=== PATIENT | female | born 1970 | race Caucasian/White ===

== ENCOUNTER 2020-04-09 15:07 | Observation (INO) | payer OTHER, SELFPAY ==
--- NOTE | ~2020-04-09 | MR_ITS ---
EXAMINATION: MR foot RT wo/w con DATE: 04/10/2020 13:47 INDICATION: Right foot fifth digit osteomyelitis. TECHNIQUE: Magnetic resonance imaging (MRI) of the right foot was performed without and with 20 mL Mu ltiHance intravenous contrast. Sequences included long axis TI-weighted FS FSE and sagittal, short ax is, and long axis TI-weighted FSE and T2-weighted FSE and postcontrast T1-weighted FS FSE. COMPARISON: Right fifth toe radiographs 04/09/2020 FINDINGS: Bone alignment is normal. No fracture. There is no decreased T1-weighted signal intensity i n the bone marrow to suggest osteomyelitis. There is mild osteoarthritis of first metatarsophalangeal joint and some of the midfoot joints and interphalangeal joints. Lisfranc ligament is intact. The fl exor and extensor tendons are normal. There is no myositis. IMPRESSION: 1. No specific evidence of osteomyelitis. Reviewed, dictated and finalized at location E. BUSINESS INTELLIGENCE CONSULTANT
--- NOTE | ~2020-04-09 | XR_ITS ---
XR toe 5th RT min 2V 04/09/2020 15:56 Indication: Right fifth toe pain Procedure: 3 views right fifth toe Comparison: No prior studies for comparison. Findings: There is suggestion of subtle osteolysis base of the fifth proximal phalanx. No displaced f racture. Mild soft tissue swelling. No foreign bodies. Impression: 1: Possible osteolysis medial base right fifth proximal phalanx. Cannot exclude osteomyelitis in the appropriate clinical setting. Consider correlation with MRI. Reviewed, dictated and finalized at location A. E OPERATOR HEAVY DUTY Impression: 1: Possible osteolysis medial base right fifth proximal phalanx. Cannot exclude osteomyelitis in the appropriate clinical setting. Consider correlation with M HORTENCIA.
--- NOTE | ~2020-04-09 | US_ITS ---
EXAMINATION: US arterial duplex LE DATE: 04/10/2020 14:34 PERFORATOR INDICATION: Gangrene of the right fifth toe TECHNIQUE: Segmental pressures and plethysmographic and Doppler waveforms of the brachial and lower e xtremity arteries were obtained. COMPARISON: None. FINDINGS: Right and left brachial artery pressures of 140 mm Hg and 136 mm Hg, respectively, are concordant (no rmal difference <= 30 mmHg). The right high-thigh pressure index is 1.02 (normal > 1.2). The right ankle-brachial index (SVITLANA) is 0 .57 (normal >= 0.9-1.0). The right great toe-brachial index (TBI) is 0.22 (normal >= 0.60). The right lower extremity segmental pressure gradients are increased below the popliteal arteries (normal grad ients <= 20-30 mmHg between adjacent levels on the same leg or the same levels on the two legs). Sabra rial Doppler waveforms next monophasic and biphasic. The left high-thigh pressure index is 1.08. The left SVITLANA is 0.65. The left TBI is 0.5. The left lower extremity segmental pressure gradients are increased below the popliteal artery. Arterial Doppler wa veforms are biphasic. IMPRESSION: 1. Diminished bilateral ankle and toe brachial indices consistent with moderate-severe peripheral art erial disease on the right and moderate peripheral arterial disease on the left. Reviewed, dictated and finalized at location A. ORATOR IMPRESSION: 1. Diminished bilateral ankle and toe brachial indices consistent with moderate -severe peripheral arterial disease on the right and moderate peripheral arteri al disease on the left.
[2020-04-09 15:26] VITALS: BP 146/83; PULSE 88; RESP 16; TEMP 36.7; O2SAT 99
[2020-04-09 16:16] LABS: Basophils Absolute Auto 0.1 K/mm3 (0.0-0.1); Basophils Percent Auto 0.3 % (0.2-1.2); Eosinophils Absolute Auto 0.1 K/mm3 (0-0.3); Eosinophils Percent Auto 0.7 % (0-4.4); Hematocrit 44.5 % (37.0-47.0); Hemoglobin 14.8 g/dL (12.0-15.0); Immature Granulocyte Absolute 0.11 K/mm3 (0.00-0.031); Immature Granulocyte Percent A 0.6 % (0-0.5); Lymphocytes Absolute Auto 2.46 K/mm3 (0.9-3.2); Lymphocytes Percent Auto 13.8 % (18.3-44.2); Mean Corpuscular HGB Conc 33.3 g/dl (32-36); Mean Corpuscular Hemoglobin 30.6 pg (26-34); Mean Corpuscular Volume 92.1 fl (80-100); Mean Platelet Volume 10.2 fl (7.4-10.4); Monocytes Percent Auto 5.4 % (2.6-8.5); Neutrophils Absolute Auto 14.2 K/mm3 (1.3-6.7); Neutrophils Percent Auto 79.2 % (45.5-73.1); Platelet Count Result 361 k/mm3 (150-375); Red Blood Count 4.83 M/mm3 (4.2-5.4); Red Cell Distribution Width 13.8 % (11.5-14.5); White Blood Count 17.9 K/mm3 (4.5-10.0)
[2020-04-09 16:28] LABS: Anion Gap 10 mmol/L (8-16); Blood Urea Nitrogen 12 mg/dL (7-17); Calcium 10.1 mg/dL (8.4-10.2); Carbon Dioxide 30 mmol/L (22-30); Chloride 101 mmol/L (98-107); Estimated CRCL calculation 100 ml/min; Estimated Glomerular Filt Rate > 60; Glucose 130 mg/dL (65-105); Potassium 4.3 mmol/L (3.4-5.0); Sodium 141 mmol/L (137-145)
[2020-04-09 17:30] VITALS: BP 140/97; PULSE 78; RESP 16; TEMP 36.8; O2SAT 98
[2020-04-09 18:12] LABS: CRP 2.7 mg/dL (<1.0)
--- NOTE | 2020-04-09 18:20 | ED.GENADULT ---
HPI - General Adult General Chief complaint: Extremity Injury, Lower Stated complaint: wound to foot Time Seen by Provider: 04/09/20 15:36 Source: patient and old records reviewed Mode of arrival: ambulatory Limitations: no limitations History of Present Illness HPI narrative: Patient is a 49-year-old female who presents to emergency department for evaluation of right pinky toe discoloration patient notes in January she began to have discoloration and irritation of the digit was seen in urgent care had negative radiographs and then was seen again at the beginning of the month by her director dance to have the patient on steroids with no improvement. Patient notes small ulcerated area to the medial aspect of the digit with the remainder of the digit with erythematous does not coloration with a few splotchy areas and to the dorsal surface of the forefoot. Patient notes aching pain worse with activity and movement. Patient denies any fever chills nausea vomiting presents in no distress has not been on antibiotics for this Related Data Home Medications Medication Instructions Recorded Confirmed naproxen 500 mg tablet 500 mg PO BID 10/16/19 10/16/19 rituximab 10 mg/mL IVPB 10/16/19 10/16/19 concentrate,intravenous sulfasalazine 500 mg tablet 0.5 gm PO BID tablet 10/16/19 10/16/19 levothyroxine 04/09/20 Allergies Allergy/AdvReac Type Severity Reaction Status Date / Time hydroxychloroquine AdvReac Unknown Headache Verified 04/09/20 16:23 Review of Systems Review of Systems: All systems reviewed & are unremarkable except as noted in HPI and below PMFSH Past Medical History Medical History Rheumatoid arthritis with positive rheumatoid factor Family History Family History (Updated 11/14/15 @ 23:21 by DOCTOR UNKNOWN) Father Family history of obesity Patient's father is in good health Family history of diabetes mellitus in first degree relative Family history of coronary artery disease Mother Family history of obesity Patient's mother is in good health Family history of diabetes mellitus in first degree relative Family history of rheumatoid arthritis Sibling Family history of obesity Patient's sister is in good health Patient's brother is in good health Grandparent Carcinoma of colon Family history of malignant neoplasm of breast Social History Social History Smoking status: Heavy tobacco smoker Alcohol intake: current Exam Narrative: Exam Narrative: GENERAL: Well-appearing, and in no acute distress. HEAD: Normocephalic, atraumatic. EYES: PERRLA and EOMI. ENT: Nares clear, no rhinorrhea or epistaxis. Mucous membranes moist. CHEST: Clear to auscultation. No respiratory distress. No wheezes rales or rhonchi HEART: Regular rate and rhythm. No murmur heard. EXTREMITIES: Normal range of motion. No edema. Patient with right fifth digit with slightly erythematous appearance with have similar ulcerated lesion to the medial aspect of the digit erythematous discoloration is circumferential with devitalized tissue noted involving the distal tip and dorsal surface. Patient with dopplerable bilateral dorsalis pedis pulses and posterior tibialis pulses SKIN: Warm, dry, no rash. NEURO: No focal deficits. Alert and oriented x3. Neurovascularly intact PSYCH: Normal mood and affect. Course Course Emergency Course: Patient in the room was evaluated patient had wound cultures obtained will be started on antibiotics admitted to the hospitalist service with orthopedic consult patient afebrile nontoxic-appearing no distress. Patient's presentation is concerning for either vasculitis or osteomyelitis. Will be covered with antibiotics given the appearance of osteolysis. Patient also has white count which is difficult to tell if this could be from steroids or secondary to infection. Patient was give
[2020-04-09 18:26] LABS: Erythrocyte Sedimentation Rate 20 mm/hr (0-20)
[2020-04-09] MEDS: KETOROLAC 30 MG/ML VIAL (*BKC) IV PUSH (20:07)
[2020-04-09 20:12] VITALS: BP 147/81; PULSE 81; RESP 16; TEMP 36.9; O2SAT 96
--- NOTE | 2020-04-09 20:22 | ADMGEN ---
This patient, Shira Gomez, was admitted to Medical Room 247-. Patient/family oriented to hospital policies and general routines including ID bracelet, bed and alarms, visiting hours, pain management, procedures, bathroom and other care routines, personal items, smoking policy, room service/diet, and visiting hours. Information on how to activate the Rapid Response Team has been discussed. Patient/Family are encouraged to report perceived risks to care and to ask questions if they do not understand what they are told or what they should do.
[2020-04-09] MEDS: LACTATED RINGERS 1,000 ML 75 ML IV CONT (21:25)
[2020-04-09] MEDS: FAMOTIDINE 20 MG/2 ML VIAL IV PUSH (21:36)
[2020-04-09 22:00] VITALS: BP 136/63; PULSE 75; RESP 20; TEMP 36.3; O2SAT 98; BMI 36.5
--- NOTE | 2020-04-09 22:03 | PM.IMHP ---
H&P: HPI History of Present Illness Date/Time: 04/09/20 22:03 Chief Complaint: Right foot pain Narrative: Shira Gomez is a 49 year old female. The patient stated that she wore pair boots that were too tight for her back in January. She said she does had him on for couple hours and they are bothering her feet she to [place] often did having problems about a week later she noticed that she had some redness and soreness to her right pinky toe. It should was just red and swollen. Around Thanksgiving she could not take the pain anymore so she went to an urgent care they gave her some prednisone thinking that it would take the swelling down. She said it helped some but it still did resolve the problem med her white count did go up. I explained her that steroids can make your white count go up. The patient then followed up with her grocery clerk checking who told her to stop taking the steroids. The patient started to have some discoloration about this last week. She went to urgent care who said that she had negative radiographs. She has not had any antibiotics at this time. She did get worked up by her grocery clerk checking for possible vasculitis which was poor reported that it was not vasculitis. She does smoke about a pack a cigarettes a day. And she does have RA. A culture was taken from that small toe on the right foot. Less than half a cm area of devitalized tissue was removed from the right pinky toe with scissors and pickups in the emergency room. The patient was given Toradol in the emergency room. Orthopedics has been consulted. She did have a x-ray of her right foot which was suggestive of osteomyelitis and suggested a follow-up with the MRI of the right foot. Her foot and then she was given vancomycin. IV fluids were started as well. Patient is admitted to observation status on the date of service of 04/09/2020. Review of Systems Review of Systems: All systems reviewed & are unremarkable except as noted in HPI and below Constitutional: Constitutional: Reports as per HPI and Reports no additional constitutional complaints Eyes: Eyes: Reports as per HPI and Reports no additional eye complaints ENT: Reports system reviewed and no additional complaints, except as documented and Reports Normal hearing present Cardiovascular: Cardiovascular: Reports no additional cardiovascular complaints Respiratory: Respiratory: Reports no additional respiratory complaints and Reports no additional respiratory complaints Gastrointestinal: Gastrointestinal: Reports as per HPI and Reports no additional gastrointestinal complaints Musculoskeletal: Musculoskeletal: Reports no additional musculoskeletal complaints Integumentary/Breasts: Skin/Breast: Reports system reviewed and no additional complaints, except as docu and Reports as per HPI Neurologic: Reports system reviewed and no additional complaints, except as documented, Reports as per HPI and Reports Normal hearing present Psychiatric: Psychiatric: Reports no additional psychiatric complaints and Reports as per HPI Endocrine: Endocrine: Reports no additional endocrine complaints Hematologic/Lymphatic: Hematologic/Lymphatic: Reports no additional hematologic/lymphatic complaints Allergic/Immunologic: Allergic/Immunologic: Reports no additional allergic/immunologic complaints [facility] Past Medical History Medical History (Updated 04/09/20 @ 22:12 by Karen Shelton NP) Hypothyroidism Rheumatoid arthritis with positive rheumatoid factor Surgical History Surgical History (Updated 04/09/20 @ 22:07 by Karen Shelton NP) No pertinent past surgical history Family History Family History Father Family history of obesity Patient's father is in good health Family history of diabetes mellitus in first degree relative Family history of coronary artery disease Mother Family history of obesity Patient's mother is in good health Family
[2020-04-10 02:00] VITALS: BP 112/50; PULSE 52; RESP 20; TEMP 36.2; O2SAT 99
[2020-04-10] MEDS: KETOROLAC 15 MG/ML VIAL (*BKC) IV PUSH ×2 (02:06→12:12)
[2020-04-10 06:00] VITALS: BP 125/54; PULSE 57; RESP 20; TEMP 36.1; O2SAT 98
[2020-04-10 06:23] LABS: Anion Gap 5 mmol/L (8-16); Blood Urea Nitrogen 12 mg/dL (7-17); Calcium 8.8 mg/dL (8.4-10.2); Carbon Dioxide 28 mmol/L (22-30); Chloride 106 mmol/L (98-107); Estimated CRCL calculation 131 ml/min; Estimated Glomerular Filt Rate > 60; Glucose 178 mg/dL (65-105); Magnesium 2.2 mg/dL (1.6-2.3); Sodium 139 mmol/L (137-145)
[2020-04-10 06:32] LABS: Basophils Percent Auto 0.2 % (0.2-1.2); Eosinophils Absolute Auto 0.1 K/mm3 (0-0.3); Eosinophils Percent Auto 0.8 % (0-4.4); Hemoglobin 12.8 g/dL (12.0-15.0); Immature Granulocyte Absolute 0.09 K/mm3 (0.00-0.031); Immature Granulocyte Percent A 0.7 % (0-0.5); Lymphocytes Absolute Auto 1.55 K/mm3 (0.9-3.2); Lymphocytes Percent Auto 12.7 % (18.3-44.2); Mean Corpuscular HGB Conc 32.8 g/dl (32-36); Mean Corpuscular Hemoglobin 30.2 pg (26-34); Mean Platelet Volume 10.8 fl (7.4-10.4); Neutrophils Absolute Auto 9.5 K/mm3 (1.3-6.7); Neutrophils Percent Auto 77.6 % (45.5-73.1); Platelet Count Result 305 k/mm3 (150-375); Red Blood Count 4.24 M/mm3 (4.2-5.4); Red Cell Distribution Width 13.7 % (11.5-14.5); White Blood Count 12.2 K/mm3 (4.5-10.0)
[2020-04-10] MEDS: FAMOTIDINE 20 MG/2 ML VIAL IV PUSH ×2 (08:32→20:36)
[2020-04-10 09:27] LABS: Free T4 Free Thyroxine Reflex 0.88 ng/dL (0.78-2.19)
[2020-04-10 10:00] VITALS: BP 132/68; PULSE 62; RESP 16; TEMP 36.7; O2SAT 99
[2020-04-10 11:35] LABS: Total Triiodothyronine (T3) 1.11 NG/ML (0.97-1.69)
--- NOTE | 2020-04-10 12:19 | PM.IMPN ---
Progress Note: A&P Assessment and Plan (1) Osteomyelitis of fifth toe of right foot: Code(s): M86.9 - Osteomyelitis, unspecified Status: Acute Assessment and Plan: Patient was placed on Zosyn and vancomycin. Will get a MRI of the foot ortho has been consulted. We also have medication for pain and will continue with IV fluids.. May wrap the foot with Telfa and Liyah. (2) Hypothyroidism: Code(s): E03.9 - Hypothyroidism, unspecified Status: Chronic Assessment and Plan: Check thyroid level and continue with levothyroxine. (3) Rheumatoid arthritis with positive rheumatoid factor: Code(s): M05.9 - Rheumatoid arthritis with rheumatoid factor, unspecified Status: Chronic Assessment and Plan: Continue with her home medications of sulfasalazine and rituximab. Additional Plan Will get Ortho consult for assessment of foot infection. Would also increase the dose of levothyroxine as TSH level is quite high. Will monitor cultures and repeat labs. Subjective Date/time seen: 04/10/20 12:19 Interval history: Patient was seen during the morning rounds today. Patient continues to have pain in the foot area with infection is. Patient denies any shortness of breath or chest pain. Mood stable Review of Systems Review of Systems: All systems reviewed & are unremarkable except as noted in HPI and below Constitutional: Constitutional: Reports as per HPI and Reports no additional constitutional complaints Eyes: Eyes: Reports as per HPI and Reports no additional eye complaints ENT: Reports system reviewed and no additional complaints, except as documented and Reports Normal hearing present Cardiovascular: Cardiovascular: Reports no additional cardiovascular complaints Respiratory: Respiratory: Reports no additional respiratory complaints and Reports no additional respiratory complaints Gastrointestinal: Gastrointestinal: Reports as per HPI and Reports no additional gastrointestinal complaints Musculoskeletal: Musculoskeletal: Reports no additional musculoskeletal complaints Integumentary/Breasts: Skin/Breast: Reports system reviewed and no additional complaints, except as docu and Reports as per HPI Neurologic: Reports system reviewed and no additional complaints, except as documented, Reports as per HPI and Reports Normal hearing present Psychiatric: Psychiatric: Reports no additional psychiatric complaints and Reports as per HPI Endocrine: Endocrine: Reports no additional endocrine complaints Hematologic/Lymphatic: Hematologic/Lymphatic: Reports no additional hematologic/lymphatic complaints Allergic/Immunologic: Allergic/Immunologic: Reports no additional allergic/immunologic complaints Exam Const: General: cooperative, healthy appearing, comfortable, no acute distress, well developed, alert, awake and Physically active Nutritional Appearance: average body habitus and well nourished Orientation/consciousness: oriented to person, oriented to place, oriented to time and patient oriented x3 Limitations: no limitations HENMT: Head: normal to inspection, No palpable skull fracture present, normocephalic and atraumatic Ears: hearing grossly normal bilaterally and external ears normal General nose exam: Normal external nose present, Normal nares present and No nasal polyps present Eyes: General: appearance normal, both eyes and all related structures Alignment and Position: alignment normal Periorbital: periorbital findings normal Eyelids: eyelids normal Conjunctivae: conjunctivae normal Sclera: sclerae normal Cornea: corneas normal Pupils: Equal, round and reactive pupils present and Pupil accommodation reflex normal EOM: EOMs intact bilaterally Neck: Neck: normal visual inspection, full ROM, no lymphadenopathy, trachea midline and supple Thyroid: thyroid normal Carotids: normal carotid upstroke Lymphatic: no lymphadenopathy noted Chest: Chest palpation & inspection: normal ins
--- NOTE | 2020-04-10 12:49 | PM.CNOR ---
Assessment and Plan Additional Plan This patient is a 49 year old female who was admitted yesterday evening through the emergency room with possible osteomyelitis of the right 5th toe. Her right 5th toe started hurting in late January. She recalls that it looked a little bit red and it was a darker red. She did not have any scab her blister at that time. She could not determine a cause. She thought maybe it was from wearing a tight shoe. There is no break in the skin or scab. She observe this and by Thanksgiving time she started experiencing intense extreme pain in the right 5th toe which she rated as 9/10. It kept her from sleeping at night and it was relentless. She has rheumatoid arthritis and she saw her liner checker and it was suspected that she might have a autoimmune vasculitis as the etiology and she was treated with prednisone and then a Medrol Dosepak. When she did not respond to the Medrol Dosepak, Raynaud's phenomena was also considered. She has not had any corticosteroids she states for the last few weeks. For her rheumatoid arthritis she takes sulfasalazine and rituximab. Her last infusion of rituximab was February 11. She developed dark eschar over the medial aspect of the right 5th toe. The pain has persisted. Yesterday she was supposed to have a CT angiogram as there was question of blood flow in the lower extremities and for some reason this could not be done and the patient was told to go to the emergency room. In the emergency room yesterday she was noted to have an elevated white count of 18,000. It is 12,000 today. She had a mild elevation in C reactive protein to 2.7 and borderline sedimentation rate at 20. She has not had any fevers or chills. The ER physician described yesterday that there was a blister and he had planned to unroof that and take some cultures of any fluid underneath but there was no actual drainage and has not been actual drainage occurring from the toe. Blood cultures were also obtained. Her family history is significant for her mother losing a leg due to vascular disease in her mid 70s. This occurred after undergoing chemotherapy and the patient recalls that there was a lot of uncertainty as to whether this represented avascular problem or a vasculitis problem early on. She recalls conversation that the vessels were clogged in the ankle and they could not do bypass surgery but it was discussed. She recalls being told that her mother had a blood clot that resulted from her chemotherapy in the leg but does not know whether the blood clot was in the artery or vein. Her mother did not smoke. This patient smokes a pack of cigarettes per day. She has been told in the last month to stop smoking but has not complied. I had a long discussion with her today about the fact that she may lose her leg from smoking. She must quit now completely and for ever more. On examination today the redness involves the 5th toe itself. She has a relatively short 5th toe. There is dark moist eschar over the medial 1/2 of the toe where it would come into contact with the 4th toe. She has exquisite tenderness to squeezing her 5th toe. She had minimal tenderness if any with squeezing of the metacarpal phalangeal joint of the 5th ray and there is no swelling or erythema around the 5th metatarsal phalangeal joint or pain with movement of that joint. The clinical appearance is that of early gangrene. Her foot is warm but I could not feel either a dorsalis pedis or a posterior tibial artery pulse. There is an x marked were she apparently did have a dorsalis pedis pulse the could be Doppler d. She denies numbness or tingling. There is no edema in the foot ankle or calf and no erythema or tenderness in these areas. She had an x-ray of the 5th toe down the emergency room last night the radiologist noted a 1 mm lucency at the medial articular base of the proximal phalanx of the 5th toe. There is a similar 1 mm lucency which could also b
[2020-04-10] MEDS: ASPIRIN 81 MG CHEWABLE TABLET PO (14:53)
[2020-04-10] MEDS: ENOXAPARIN 30 MG/0.3 ML SYRINGE SUB-Q ×2 (14:53→20:36)
[2020-04-10] MEDS: oxyCODONE HCL (*CRX) 2.5 MG TAB IR PO ×3 (14:54→23:44)
--- NOTE | 2020-04-10 16:09 | PM.CNGS ---
Assessment and Plan Assessment and plan (1) Ischemic ulcer of toe of right foot: Onset Date: ~01/2020 Code(s): L97.519 - Non-pressure chronic ulcer of other part of right foot with unspecified severity Status: Acute Assessment and Plan: This may be the case of early Buerger's disease or some small-vessel ischemia to the right 5th toe. The abnormalities of the arterial vessels on her ultrasound suggest that she has atherosclerosis of the lower extremities below the knee worse on the right. This is probably led to the condition of her right toe. We need to await the results of her right foot MRI. If there is a strong possibility of osteomyelitis on that would consider infectious disease consultation in view of the fact that her options would be long-term IV antibiotics to try to clear this without amputation versus a right 5th toe ray amputation. I believe that she should keep her appointment for a CT a of the right lower extremity and then consider vascular surgery consultation once that is done to see if we can improve the blood flow to the foot of the right lower extremity. Thank for asking me to see this pleasant patient will try to work with you in for wound care and further workup. Patient should be strongly encouraged to stop smoking. (2) Rheumatoid arthritis with positive rheumatoid factor: Onset Date: Unknown Code(s): M05.9 - Rheumatoid arthritis with rheumatoid factor, unspecified Status: Chronic Assessment and Plan: On medication and hospitalist service following. (3) Hypothyroidism: Onset Date: Unknown Code(s): E03.9 - Hypothyroidism, unspecified Status: Chronic Assessment and Plan: On medication and hospitalist service following. (4) Pain in toe of right foot: Onset Date: ~01/2020 Code(s): M79.674 - Pain in right toe(s) Status: Acute Assessment and Plan: Most likely secondary to mild trauma plus ischemia to the right 5th toe. See #1. above. Additional Plan I agree with Dr. Davis interventions of a baby aspirin once a day along with low-dose Lovenox while in the hospital. I would recommend applying a daily dressing of silver gel on the broken down skin on her 5th toe with a light wrap to protect the area. History of Present Illness Consult details Consult date: 04/10/20 Reason for consult: other ( Possible ischemia to right foot and 5th toe) Requesting physician: Bruno Price MD Narrative: This patient is a 49 year old White female who is an active smoker and was admitted on the evening of 04/09/2020 through the emergency room with possible osteomyelitis of the right 5th toe. Her right 5th toe started hurting in late January. She recalls that it looked a little bit red and it was a darker red. She did not have any scab her blister at that time. She could not determine a cause. She thought maybe it was from wearing a tight shoe. There is no break in the skin or scab. She observe this and by Thanksgiving time she started experiencing intense extreme pain in the right 5th toe which she rated as 9/10. It kept her from sleeping at night and it was relentless. She has rheumatoid arthritis and she saw her crimper operator and it was suspected that she might have a autoimmune vasculitis as the etiology and she was treated with prednisone and then a Medrol Dosepak. When she did not respond to the Medrol Dosepak, Raynaud's phenomena was also considered. She has not had any corticosteroids she states for the last few weeks. For her rheumatoid arthritis she takes sulfasalazine and rituximab. Her last infusion of rituximab was February 11. She developed dark eschar over the medial aspect of the right 5th toe. The pain has persisted. Yesterday she was supposed to have a CT angiogram as there was question of blood flow in the lower extremities and for some reason this could not be done and the patient was told to go to the e
[2020-04-10 18:00] VITALS: BP 126/62; PULSE 62; RESP 16; TEMP 36.7; O2SAT 97
[2020-04-10 18:12] LABS: Hematocrit 38.4 % (37.0-47.0); Hemoglobin 12.8 g/dL (12.0-15.0); Mean Corpuscular HGB Conc 33.3 g/dl (32-36); Mean Corpuscular Hemoglobin 30.8 pg (26-34); Mean Corpuscular Volume 92.5 fl (80-100); Mean Platelet Volume 10.2 fl (7.4-10.4); Platelet Count Result 280 k/mm3 (150-375); Red Blood Count 4.15 M/mm3 (4.2-5.4); Red Cell Distribution Width 13.8 % (11.5-14.5); White Blood Count 13.4 K/mm3 (4.5-10.0)
[2020-04-10] MEDS: SILVERGEL (ELTA) 45 ML 1 APPLIC TOPICAL (18:14)
[2020-04-10] MEDS: NICOTINE (*PBKC) 21 MG PATCH 1 PATCH TRANSDERM (18:14)
[2020-04-10] MEDS: LACTATED RINGERS 1,000 ML 75 ML IV CONT (18:17)
[2020-04-10 20:56] VITALS: BP 107/66; PULSE 62; RESP 16; TEMP 37.1; O2SAT 99
[2020-04-11] VITALS (7 sets, daily range): BP systolic 116–127; BP diastolic 57–71; PULSE 58–75; RESP 16–20; TEMP 36.3–37; O2SAT 94–100
[2020-04-11] MEDS: oxyCODONE HCL (*CRX) 2.5 MG TAB IR PO ×6 (04:14→22:56)
[2020-04-11 05:26] LABS: Basophils Percent Auto 0.3 % (0.2-1.2); Eosinophils Absolute Auto 0.2 K/mm3 (0-0.3); Eosinophils Percent Auto 1.3 % (0-4.4); Hematocrit 38.8 % (37.0-47.0); Hemoglobin 12.7 g/dL (12.0-15.0); Immature Granulocyte Absolute 0.09 K/mm3 (0.00-0.031); Immature Granulocyte Percent A 0.8 % (0-0.5); Lymphocytes Absolute Auto 1.62 K/mm3 (0.9-3.2); Lymphocytes Percent Auto 13.5 % (18.3-44.2); Mean Corpuscular HGB Conc 32.7 g/dl (32-36); Mean Corpuscular Hemoglobin 30.2 pg (26-34); Mean Corpuscular Volume 92.4 fl (80-100); Mean Platelet Volume 10.1 fl (7.4-10.4); Monocytes Absolute Auto 1.1 K/mm3 (0.1-0.6); Monocytes Percent Auto 9.5 % (2.6-8.5); Neutrophils Percent Auto 74.6 % (45.5-73.1); Platelet Count Result 261 k/mm3 (150-375)
[2020-04-11 06:10] LABS: Vancomycin Trough 13.3 ug/mL (10.0-20.0)
[2020-04-11] MEDS: LACTATED RINGERS 1,000 ML 75 ML IV CONT (06:18)
[2020-04-11] MEDS: LEVOTHYROXINE SODIUM 125 MCG TABLET PO (07:17)
--- NOTE | 2020-04-11 08:11 | PM.IMPN ---
Progress Note: A&P Assessment and Plan (1) Osteomyelitis of fifth toe of right foot: Code(s): M86.9 - Osteomyelitis, unspecified Status: Acute Assessment and Plan: Patient was placed on Zosyn and vancomycin. Will get a MRI of the foot ortho has been consulted. We also have medication for pain and will continue with IV fluids.. May wrap the foot with Telfa and Liyah. (2) Hypothyroidism: Onset Date: Unknown Code(s): E03.9 - Hypothyroidism, unspecified Status: Chronic Assessment and Plan: Check thyroid level and continue with levothyroxine. (3) Rheumatoid arthritis with positive rheumatoid factor: Onset Date: Unknown Code(s): M05.9 - Rheumatoid arthritis with rheumatoid factor, unspecified Status: Chronic Assessment and Plan: Continue with her home medications of sulfasalazine and rituximab. Additional Plan Will get Ortho consult for assessment of foot infection. Would also increase the dose of levothyroxine as TSH level is quite high. Will monitor cultures and repeat labs. Subjective Date/time seen: 04/11/20 08:11 Interval history: Patient was seen during the morning rounds today. Patient continues to have pain in the foot area with infection is. Patient denies any shortness of breath or chest pain. Mood stable No new complaints. Review of Systems Review of Systems: All systems reviewed & are unremarkable except as noted in HPI and below Constitutional: Constitutional: Reports as per HPI and Reports no additional constitutional complaints Eyes: Eyes: Reports as per HPI and Reports no additional eye complaints ENT: Reports system reviewed and no additional complaints, except as documented and Reports Normal hearing present Cardiovascular: Cardiovascular: Reports no additional cardiovascular complaints Respiratory: Respiratory: Reports no additional respiratory complaints and Reports no additional respiratory complaints Gastrointestinal: Gastrointestinal: Reports as per HPI and Reports no additional gastrointestinal complaints Musculoskeletal: Musculoskeletal: Reports no additional musculoskeletal complaints Integumentary/Breasts: Skin/Breast: Reports system reviewed and no additional complaints, except as docu and Reports as per HPI Neurologic: Reports system reviewed and no additional complaints, except as documented, Reports as per HPI and Reports Normal hearing present Psychiatric: Psychiatric: Reports no additional psychiatric complaints and Reports as per HPI Endocrine: Endocrine: Reports no additional endocrine complaints Hematologic/Lymphatic: Hematologic/Lymphatic: Reports no additional hematologic/lymphatic complaints Allergic/Immunologic: Allergic/Immunologic: Reports no additional allergic/immunologic complaints Exam Const: General: cooperative, healthy appearing, comfortable, no acute distress, well developed, alert, awake and Physically active Nutritional Appearance: average body habitus and well nourished Orientation/consciousness: oriented to person, oriented to place, oriented to time and patient oriented x3 Limitations: no limitations HENMT: Head: normal to inspection, No palpable skull fracture present, normocephalic and atraumatic Ears: hearing grossly normal bilaterally and external ears normal General nose exam: Normal external nose present, Normal nares present and No nasal polyps present Eyes: General: appearance normal, both eyes and all related structures Alignment and Position: alignment normal Periorbital: periorbital findings normal Eyelids: eyelids normal Conjunctivae: conjunctivae normal Sclera: sclerae normal Cornea: corneas normal Pupils: Equal, round and reactive pupils present and Pupil accommodation reflex normal EOM: EOMs intact bilaterally Neck: Neck: normal visual inspection, full ROM, no lymphadenopathy, trachea midline and supple Thyroid: thyroid normal Carotids: normal carotid upstroke Lymphatic: n
[2020-04-11] MEDS: ASPIRIN 81 MG CHEWABLE TABLET PO (09:08)
[2020-04-11] MEDS: sulfaSALAzine 500 MG TABLET PO (09:08)
[2020-04-11] MEDS: ENOXAPARIN 30 MG/0.3 ML SYRINGE SUB-Q ×2 (09:08→20:30)
[2020-04-11] MEDS: FAMOTIDINE 20 MG/2 ML VIAL IV PUSH ×2 (09:08→20:30)
[2020-04-11] MEDS: SILVERGEL (ELTA) 45 ML 1 APPLIC TOPICAL (09:09)
--- NOTE | 2020-04-11 11:41 | PM.PNGS ---
Progress Note: A&P Assessment and Plan (1) Ischemic ulcer of toe of right foot: Onset Date: ~01/2020 Code(s): L97.519 - Non-pressure chronic ulcer of other part of right foot with unspecified severity Status: Acute Assessment and Plan: I again discussed today the results of the patient's arterial ultrasound Doppler study revealing decreased blood flow to both lower extremities below the knee. I also discussed the results of the MRI of the foot which showed no signs of osteomyelitis. Pending agreement by infectious disease I would suggest patient could be sent home on oral antibiotic for 10 days consider Sheldonuin. I believe she should also be set up with a outpatient surgical consultation with a vascular surgeon in view of the findings of her above studies. She is already scheduled for a outpatient CTA of the lower extremities and should go ahead and follow-up and do this once her insurance approval is given. Using a combination of that plus the results of the MR and ultrasound studies of ask her surgeon could consider need for possible intravascular intervention versus bypass surgery for her right lower extremity. At this time I will plan to sign off the case. Recommendations would be to continue local wound care and oral antibiotics if Infectious Disease agrees. Please call me if you would like me to see the patient again. (2) Rheumatoid arthritis with positive rheumatoid factor: Onset Date: Unknown Code(s): M05.9 - Rheumatoid arthritis with rheumatoid factor, unspecified Status: Chronic (3) Hypothyroidism: Onset Date: Unknown Code(s): E03.9 - Hypothyroidism, unspecified Status: Chronic Additional Plan At this point general surgery will sign off. Recommend continued daily cleansing with soap and water followed by application of silver gel and a a dressing to the open area of her right 5th toe. Would recommend 10-14 days of follow-up oral antibiotics as an outpatient and follow up with a vascular surgeon and her PCP. Definitely needs help in stopping smoking. Time Spent With Patient Time with patient: 15 - 25 minutes Subjective Subjective Date/Time Seen: 04/11/20 11:41 Patient lying in bed when I entered the room. She states she is still taking hydrocodone about every 4-6 hours for pain on for right toe. She is not on any NSAIDs at this time. She does take naproxen at home and I think taking that b.i.d. is reasonable to start now that we know that she probably will be undergoing any surgery soon. That could be background pain control and then she could be sent home with some hydrocodone for breakthrough pain. I discussed the MRI findings with her today which showed no signs of osteomyelitis. Review of Systems Constitutional: Constitutional: Reports no additional constitutional complaints ENT: Reports other (Mucous Membranes moist.) Cardiovascular: Cardiovascular: Denies dyspnea Respiratory: Respiratory: Denies pain on inspiration and Denies dyspnea Musculoskeletal: Musculoskeletal: Reports other (No calf swelling or edema) Comments: Known history of rheumatoid arthritis on medications. Integumentary/Breasts: Skin/Breast: Reports system reviewed and no additional complaints, except as docu Exam Const: General: cooperative, no acute distress, alert and awake Orientation/consciousness: patient oriented x3 HENMT: Mouth: Yes moist mucous membranes Neck: Neck: normal visual inspection Chest: Chest palpation & inspection: normal inspection of the chest Resp: Effort & Inspection: normal respiratory effort Auscultation: clear to auscultation bilaterally Cardio: Jugular venous distension: no JVD Rate: regular rate Rhythm: regular rhythm GI: Rectal Exam: deferred Neuro: General: patient oriented x3 and moves all extremities Speech: normal speech Extrem: General: normal exam except as noted Right lower extremity: foot ( Fifth toe right foot wrappe
--- NOTE | 2020-04-11 14:28 | PM.PNORT ---
Progress Note: A&P Additional Plan Results of ABIs and MRI of toe reviewed. No osteo of fifth toe. Mod severe peripheral arterial disease right leg. Dr Jhaveri's note reviewed. I will sign off now but will be available if questions for ortho [phone]. Subjective Subjective Date/Time Seen: 04/11/20 14:28 Objective Data Vital Signs Vital Signs: Vital Signs - 24 hr 04/10/20 18:00 04/10/20 20:56 04/11/20 01:32 Temperature 36.7 C 37.1 C 37.0 C Pulse Rate 62 62 64 Respiratory Rate 16 16 18 Blood Pressure 126/62 107/66 127/64 Pulse Oximetry 97 99 98 04/11/20 05:01 04/11/20 08:30 04/11/20 10:04 Temperature 36.6 C 36.8 C Pulse Rate 66 64 Respiratory Rate 16 18 Blood Pressure 120/65 117/63 Pulse Oximetry 96 97 97 Intake/Output Intake/Output: Intake & Output 04/08/20 04/09/20 04/10/20 04/11/20 23:59 23:59 23:59 23:59 Intake Total 700 2740 2430 Output Total 2100 750 Balance 257 843 4156 Meds/Results Medications: Active Medications Generic Name Dose Route Start Last Admin Trade Name Freq PRN Reason Stop Dose Admin Aspirin 81 mg 04/10/20 12:50 04/11/20 09:08 Aspirin 81 Mg Chewable Tablet PO 81 mg DAILY@0800 ALLEGRA Administration Enoxaparin Sodium 30 mg 04/10/20 12:55 04/11/20 09:08 Enoxaparin 30 Mg/0.3 Ml Syringe SUB-Q 30 mg Q12HR ALLEGRA Administration Famotidine 20 mg 04/09/20 21:00 04/11/20 09:08 Famotidine 20 Mg/2 Ml Vial IV PUSH 20 mg Q12HR ALLEGRA Administration Vancomycin HCl 1,750 mg in 500 mls @ 250 mls/hr 04/10/20 05:00 04/11/20 08:20 Vancomycin 1,750 Mg/D5w 500 Ml IVPB Infused Q12H ALLEGRA Infusion Lactated Ringer's 1,000 mls @ 75 mls/hr 04/09/20 18:30 04/11/20 10:30 Lr - Lactated Ringers Iv IV CONT 75 mls/hr .[id number] ALLEGRA Infusion Piperacillin/Tazobactam/Dextrose 3.375 gm in 50 mls @ 100 mls/hr 04/10/20 20:00 04/11/20 11:00 Zosyn 3.375 Gm/D5w 50ml Pm IVPB Infused Q6H ALLEGRA Infusion Levothyroxine Sodium 125 mcg 04/11/20 06:30 04/11/20 07:17 Levothyroxine Sodium 125 Mcg Tablet PO 125 mcg DAILY@0630 ALLEGRA Administration Nicotine 1 patch 04/10/20 17:25 04/10/20 18:14 Nicotine (*Pbkc) 21 Mg Patch TRANSDERM 1 patch HS ALLEGRA Administration Ondansetron HCl 4 mg 04/09/20 18:28 Ondansetron Inj 4 Mg/2 Ml Vial IV PUSH Q4H PRN Nausea Oxycodone HCl 5 mg 04/10/20 12:54 Oxycodone Hcl (*Crx) 5 Mg Tab Ir PO Q4H PRN Pain Rated 7-10 Oxycodone HCl 2.5 mg 04/10/20 19:00 04/11/20 11:03 Oxycodone Hcl (*Crx) 2.5 Mg Tab Ir PO 2.5 mg Q4H ALLEGRA Administration Silver Nitrate 1 applic 04/10/20 15:00 04/11/20 09:09 Silvergel (Elta) 45 Ml TOPICAL 1 applic DAILY ALLEGRA Administration Sulfasalazine 500 mg 04/11/20 08:00 04/11/20 09:08 Sulfasalazine 500 Mg Tablet PO 500 mg DAILY@0800 ALLEGRA Administration Radiology Results: ITS Impressions Toe X-Ray 04/09/20 15:58 Impression: 1: Possible osteolysis medial base right fifth proximal phalanx. Cannot exclude osteomyelitis in the appropriate clinical setting. Consider correlation with MRI. Duplex Scan Lower Extremity Artery 04/10/20 14:34 IMPRESSION: 1. Diminished bilateral ankle and toe brachial indices consistent with moderate-severe peripheral arterial disease on the right and moderate peripheral arterial disease on the left. Foot MRI 04/10/20 21:14 IMPRESSION: 1. No specific evidence of osteomyelitis. Labs Labs: Laboratory Results - last 24 hr 04/10/20 04/11/20 04/11/20 18:05 05:16 05:16 WBC 13.4 H 12.0 H RBC 4.15 L 4.20 Hgb 12.8 12.7 Hct 38.4 38.8 MCV 92.5 92.4 MCH 30.8 30.2 MCHC 33.3 32.7 RDW 13.8 14.0 Plt Count 280 261 MPV 10.2 10.1 Immature Gran % (Auto) 0.8 H Neut % (Auto) 74.6 H Lymph % (Auto) 13.5 L [place] % (Auto) 9.5 H Eos % (Auto) 1.3 Baso % (Auto) 0.3 Lymph # (Auto) 1.62 [place] # (Auto) 1.1 H Eos # (Auto) 0.2 Baso # (Auto) 0.
[2020-04-11 18:05] LABS: Anion Gap 1 mmol/L (8-16); Blood Urea Nitrogen 12 mg/dL (7-17); Calcium 8.6 mg/dL (8.4-10.2); Carbon Dioxide 33 mmol/L (22-30); Chloride 104 mmol/L (98-107); Estimated CRCL calculation 82 ml/min; Estimated Glomerular Filt Rate 59; Glucose 200 mg/dL (65-105); Sodium 138 mmol/L (137-145)
[2020-04-11] MEDS: NICOTINE (*PBKC) 21 MG PATCH 1 PATCH TRANSDERM (20:31)
[2020-04-12] MEDS: ONDANSETRON INJ 4 MG/2 ML VIAL IV PUSH (02:30)
[2020-04-12] MEDS: LACTATED RINGERS 1,000 ML 75 ML IV CONT (02:30)
[2020-04-12] MEDS: oxyCODONE HCL (*CRX) 2.5 MG TAB IR PO ×4 (02:55→14:35)
[2020-04-12 04:00] VITALS: BP 101/59; PULSE 61; RESP 18; TEMP 36.2; O2SAT 98
[2020-04-12 05:43] LABS: Hematocrit 36.3 % (37.0-47.0); Hemoglobin 12.1 g/dL (12.0-15.0); Mean Corpuscular HGB Conc 33.3 g/dl (32-36); Mean Corpuscular Hemoglobin 30.5 pg (26-34); Mean Corpuscular Volume 91.4 fl (80-100); Mean Platelet Volume 10.6 fl (7.4-10.4); Platelet Count Result 289 k/mm3 (150-375); Red Blood Count 3.97 M/mm3 (4.2-5.4); Red Cell Distribution Width 13.6 % (11.5-14.5)
[2020-04-12 05:55] LABS: Anion Gap 4 mmol/L (8-16); Blood Urea Nitrogen 9 mg/dL (7-17); Carbon Dioxide 32 mmol/L (22-30); Chloride 106 mmol/L (98-107); Estimated CRCL calculation 90 ml/min; Estimated Glomerular Filt Rate > 60; Glucose 120 mg/dL (65-105); Potassium 3.7 mmol/L (3.4-5.0); Sodium 142 mmol/L (137-145)
[2020-04-12] MEDS: LEVOTHYROXINE SODIUM 125 MCG TABLET PO (06:44)
--- NOTE | 2020-04-12 08:13 | PM.DS ---
DS: Admitting Diagnosis Admitting Diagnosis Admitting Diagnosis: 1. Osteomyelitis foot 2. As rheumatoid arthritis 3. Hypothyroidism DS: Discharge Diagnosis Discharge Diagnosis (1) Hypothyroidism: Onset Date: Unknown Code(s): E03.9 - Hypothyroidism, unspecified Status: Chronic Assessment and Plan: Check thyroid level and continue with levothyroxine. (2) Rheumatoid arthritis with positive rheumatoid factor: Onset Date: Unknown Code(s): M05.9 - Rheumatoid arthritis with rheumatoid factor, unspecified Status: Chronic Assessment and Plan: Continue with her home medications of sulfasalazine and rituximab. (3) Ischemic ulcer of toe of right foot: Onset Date: ~01/2020 Code(s): L97.519 - Non-pressure chronic ulcer of other part of right foot with unspecified severity Status: Acute DS: Summary Hospital Course Reason for hospitalization: 1. Infection of the right foot 2. Rheumatoid arthritis 3. Hypothyroidism Hospital Course: 49 years old female with history of hypothyroidism and rheumatoid arthritis admitted complains of having infection of the right foot. Workup an MRI shows no osteomyelitis of the foot orthopedic surgeon was consulted who suggested that patient can be managed as an outpatient p.o. antibiotics and follow-up scheduled for outpatient workup and treatment with orthopedic. Today patient is feeling better so patient is discharged in stable condition on Cipro and clindamycin and outpatient follow-up scheduled with Orthopedic. Patient is also advised that patient should quit smoking and nicotine patch prescription is given condition at discharge stable. Patient's sugar is slightly high patient is advised to monitor sugar patient and at least follow the diabetic diet and take the sugar results to her primary care physician who can advised patient with a needs in medicine or not. Patient will be monitored as an outpatient. Time spent discussing smoking cessation with patient: 3 to 10 minutes Status at Discharge Cognitive/behavioral status at discharge: Stable Functional status at discharge: independent ambulation Overall status at discharge: patient is back to baseline Time Spent with Patient Time attestation: Total time spent providing and/or coordinating discharge services: Time spent: Less than 30 minutes Specific discharge activities: As tolerated Exam Const: General: cooperative, healthy appearing, comfortable, no acute distress, well developed, alert, awake and Physically active Nutritional Appearance: average body habitus and well nourished Orientation/consciousness: oriented to person, oriented to place, oriented to time and patient oriented x3 Limitations: no limitations HENMT: Head: normal to inspection, No palpable skull fracture present, normocephalic and atraumatic Ears: hearing grossly normal bilaterally and external ears normal General nose exam: Normal external nose present, Normal nares present and No nasal polyps present Eyes: General: appearance normal, both eyes and all related structures Alignment and Position: alignment normal Periorbital: periorbital findings normal Eyelids: eyelids normal Conjunctivae: conjunctivae normal Sclera: sclerae normal Cornea: corneas normal Pupils: Equal, round and reactive pupils present and Pupil accommodation reflex normal EOM: EOMs intact bilaterally Neck: Neck: normal visual inspection, full ROM, no lymphadenopathy, trachea midline and supple Thyroid: thyroid normal Carotids: normal carotid upstroke Lymphatic: no lymphadenopathy noted Chest: Chest palpation & inspection: normal inspection of the chest Resp: Effort & Inspection: normal respiratory effort Auscultation: clear to auscultation bilaterally Percussion: percussion normal Cardio: Palpation: normal PMI Rate: regular rate Rhythm: regular rhythm Heart sounds: S1 normal heart sound present and S2 normal heart sound present Peripheral pulses:
[2020-04-12] MEDS: sulfaSALAzine 500 MG TABLET PO (08:49)
[2020-04-12] MEDS: ENOXAPARIN 30 MG/0.3 ML SYRINGE SUB-Q (08:49)
[2020-04-12] MEDS: ASPIRIN 81 MG CHEWABLE TABLET PO (08:49)
[2020-04-12] MEDS: FAMOTIDINE 20 MG/2 ML VIAL IV PUSH (08:50)
[2020-04-12] MEDS: SILVERGEL (ELTA) 45 ML 1 APPLIC TOPICAL (08:50)
[2020-04-12 10:00] VITALS: BP 120/68; PULSE 62; RESP 16; TEMP 36.4; O2SAT 97
[2020-04-12 14:00] VITALS: BP 124/59; PULSE 74; RESP 16; TEMP 36.6; O2SAT 94
--- NOTE | 2020-04-12 16:04 | WPDCN ---
Assessment and Plan Additional Plan 1. Right foot the 5th digit soft tissue necrosis most likely secondary to peripheral vascular disease. Blood cultures as well as wound culture are negative. MRI of the foot was negative for osteomyelitis. Patient is on Zosyn and vancomycin day 3. Will transition to Ceftin and doxycycline for 2 weeks. Patient will likely need follow-up with vascular surgery. 2. Peripheral vascular disease with moderate to severe vascular insufficiency on arterial Doppler of the lower extremity. Patient also has history of tobacco abuse. Denies any family history of peripheral vascular disease. Patient is not a diabetic. Advised on tobacco cessation. 3. Rheumatoid arthritis on Rituxan and sulfasalazine. Immunosuppressed state. 4. Hypothyroidism on Synthroid. 5. Okay for discharge planning if okay with others. Patient is to follow up with vascular surgery in 2 weeks. 6. Date of service 04/12/2020. CC Dr. Sanabria [facility] Data of Consult Date/Time: 04/12/20 16:04 Requesting Physician: Pratik Sanabria MD Primary Care Provider: Jimbo Means MD Consult Narrative Narrative: Shira Gomez is a 49 year old female with significant past medical history for rheumatoid arthritis and hypothyroidism on Rituxan apparently presented to the emergency room with right foot 5th digit pain. She denies any history of trauma. No fever no chills. Patient has some superficial soft tissue necrosis. Patient was also recently found to have peripheral vascular disease. She is afebrile with a white count count of 12,000. Blood cultures have been negative. MRI of the foot was negative for osteomyelitis. I was requested to see her for further recommendation for oral antibiotics therapy as an outpatient. Review of Systems Constitutional: Constitutional: Reports no additional constitutional complaints ENT: Reports system reviewed and no additional complaints, except as documented Cardiovascular: Cardiovascular: Reports no additional cardiovascular complaints Respiratory: Respiratory: Reports no additional respiratory complaints Gastrointestinal: Gastrointestinal: Reports no additional gastrointestinal complaints Genitourinary: Genitourinary: Reports no additional female genitourinary complaints Musculoskeletal: Musculoskeletal: Reports no additional musculoskeletal complaints Integumentary/Breasts: Skin/Breast: Reports system reviewed and no additional complaints, except as docu Neurologic: Reports system reviewed and no additional complaints, except as documented Psychiatric: Psychiatric: Reports no additional psychiatric complaints Endocrine: Endocrine: Reports no additional endocrine complaints Hematologic/Lymphatic: Hematologic/Lymphatic: Reports no additional hematologic/lymphatic complaints Allergic/Immunologic: Allergic/Immunologic: Reports no additional allergic/immunologic complaints [facility] Past Medical History Medical History Hypothyroidism (Unknown) Rheumatoid arthritis with positive rheumatoid factor (Unknown) Surgical History Surgical History No pertinent past surgical history Family History Family History Father Family history of obesity Patient's father is in good health Family history of diabetes mellitus in first degree relative Family history of coronary artery disease Mother Family history of obesity Patient's mother is in good health Family history of diabetes mellitus in first degree relative Family history of rheumatoid arthritis Sibling Family history of obesity Patient's sister is in good health Patient's brother is in good health Grandparent Carcinoma of colon Family history of malignant neoplasm of breast Social History Social History Social History:
== END 2020-04-12 17:45 | disposition home or self-care (01) ==
LOC: ANHED 18:25 → ANH2MED 22:57
PROVIDERS: Emergency Medicine Emergency Medical Services; Nurse Practitioner; Surgery; Admitting Provider Internal Medicine; Emergency Provider Emergency Medicine; PCP Family Medicine; Visit Provider Internal Medicine
DX: L97.519 Non-pressure chronic ulcer of other part of right foot with unspecified severity (principal); M79.674 Pain in right toe(s); M05.9 Rheumatoid arthritis with rheumatoid factor, unspecified; I73.9 Peripheral vascular disease, unspecified; F17.210 Nicotine dependence, cigarettes, uncomplicated; E03.9 Hypothyroidism, unspecified
CPT/HCPCS: 11042; 36415; 73660; 73720; 80048; 80202; 83735; 84439; 84443; 84480; 85025; 85027; 85652; 86140; 87040; 87070; 87075; 87205; 93925; 96361; 96365; 96366; 96367; 96372; 96375; 96376; 99285; A9270; A9577; G0378; J0131; J0690; J1650; J1885; J2405; J2543; J3370; J7120

== ENCOUNTER 2020-04-22 15:29 | Outpatient (CLI) | payer OTHER, SELFPAY ==
--- NOTE | ~2020-04-22 | CT_ITS ---
EXAMINATION: CTA abd aorta runoff DATE: 04/22/2020 16:17 INDICATION: Peripheral arterial disease. TECHNIQUE: Computed tomographic angiography (CTA) of the abdominal, pelvis, and both lower extremitie s was performed with 150 mL Omnipaque-350 intravenous contrast. Automated exposure control and iterat marlys reconstruction technique were employed. The dose-length product was 2106.52 mGy-cm. Maximum inten sity projection 3D-reconstructions of the arteries were created by the technologist on a separate wor kstation. COMPARISON: None. FINDINGS: ABDOMINAL AORTA AND ITS BRANCHES: There is atherosclerosis of abdominal aorta without significant stenosis. There is no significant zina nosis of celiac axis. There is mild stenosis of superior mesenteric artery. There is mild stenosis of the renal arteries. There is moderate stenosis of the origin of inferior mesenteric artery. PELVIC VASCULATURE: There is mild stenosis of right common iliac artery, right internal iliac artery, and right external iliac artery. There is mild stenosis of left common iliac artery, left external iliac artery, and lef t internal iliac artery. RIGHT LOWER EXTREMITY VASCULATURE: There is mild stenosis of right common femoral artery. There is no significant stenosis of proximal f emoris. There is mild stenosis of proximal right superficial femoral artery. There is total occlusion of distal right superficial femoral artery. There is reconstitution of flow in above-knee popliteal artery. There is no significant stenosis of the tibioperoneal trunk. There is no significant stenosis of peroneal artery or the anterior or posterior tibial arteries. LEFT LOWER EXTREMITY VASCULATURE: There is mild stenosis of left common femoral artery and profunda femoris. There is moderate stenosis of proximal and mid left superficial femoral artery. There is total occlusion of distal left superfi cial femoral artery. There is reconstitution of flow in above-knee popliteal artery. There is mild st enosis of popliteal artery. There is no significant stenosis of the tibioperoneal trunk, peroneal art barney, or the anterior or posterior tibial arteries. ADDITIONAL FINDINGS: The visualized portions of the lung bases demonstrate mild atelectasis. No pleural effusion. The hear t size is normal. No pericardial effusion. The liver, gallbladder, spleen, pancreas, adrenal glands, and kidneys are normal. There is an intrauterine device in expected position. There is diverticulosis of the colon without evidence of diverticulitis. There are no dilated loops of bowel. The appendix i s normal. There are no pathologically enlarged lymph nodes. There is no free intraperitoneal fluid. T here is severe lower lumbar spondylosis. IMPRESSION: 1. Total occlusion of distal right superficial femoral artery with reconstitution of flow in above-k nee popliteal artery. Three-vessel runoff. 2. Moderate stenosis of proximal and mid left superficial femoral artery. Total occlusion of distal l eft superficial femoral artery with reconstitution of flow in above-knee popliteal artery. Three-vess el runoff. Reviewed, dictated and finalized at location A. ER ENGINEER IMPRESSION: 1. Total occlusion of distal right superficial femoral artery with reconstitut ion of flow in above-knee popliteal artery. Three-vessel runoff. 2. Moderate stenosis of proximal and mid left superficial femoral artery. Total occlusion of distal left superficial femoral artery with reconstitution of silviano w in above-knee popliteal artery. Three-vessel runoff.
== END 2020-04-22 15:30 ==
PROVIDERS: PCP Family Medicine; Visit Provider Physician Assistant
DX: I70.201 Unspecified atherosclerosis of native arteries of extremities, right leg (principal); I70.0 Atherosclerosis of aorta; I77.1 Stricture of artery; M47.816 Spondylosis without myelopathy or radiculopathy, lumbar region
CPT/HCPCS: 75635; Q9967

== ENCOUNTER 2024-02-28 10:17 | Outpatient (CLI) | payer OTHER, SELFPAY ==
--- NOTE | ~2024-02-28 | CT_ITS ---
CT Scan of the Chest without Contrast: Clinical Indication: Lung cancer screening, nicotine dependence Technique: Contiguous sections were acquired throughout the chest without intravenous contrast. Dose reduction technique was used on this scan by utilizing automated exposure control and iterative recon struction technique. The dose-length product (DLP) was 394.37 mGy-cm. Findings: There is no evidence of any significant mediastinal, hilar or axillary lymphadenopathy. Coronary alexey ry calcifications are present. There is no evidence of pleural or pericardial effusion. The lungs are clear. No pulmonary nodules or infiltrates are noted. Images through the upper abdomen reveal no abnormalities. Impression: Lung RADS 1: Negative. 12 month follow-up screening CT advised. Reviewed, dictated and finalized at location . ESS CONTROL OPERATOR Impression: Lung RADS 1: Negative. 12 month follow-up screening CT advised.
== END 2024-02-28 10:18 | disposition home or self-care (01) ==
LOC: MICIMG 10:18
PROVIDERS: PCP Family Medicine; Visit Provider Family Medicine
DX: Z12.2 Encounter for screening for malignant neoplasm of respiratory organs (principal); Z87.891 Personal history of nicotine dependence
CPT/HCPCS: 71271

== ENCOUNTER 2024-10-01 01:07 | Day surgery (SDC) | payer OTHER, SELFPAY ==
[2024-09-19 13:28] VITALS: BMI 37.6
--- OUTSIDE RECORDS SUMMARY | 2024-10-01 01:09 | XMS_ITS | Clinical Summary ---
Author Organization [facility] Address [address] [place] [address] Care Team Providers Care Photovoltaic Panel Installer Name Role Phone Jimbo Means MD Primary Care Provider [phone] Braulio Nick MD Unavailable Allergies No known active allergies Medications levothyroxine 125 MCG tablet Take 125 mcg by mouth every morning. Active aspirin 81 MG chewable tablet Chew 81 mg by mouth daily. Active naproxen 250 MG tablet Take 500 mg by mouth 2 (two) times daily as needed. Active Social History Tobacco Use Types Packs/Day Years Used Date Smoking Tobacco: Former Cigarettes 1 30 1 06/12/1989 - 04/11/2020 Smokeless Tobacco: Never Alcohol Use Standard Drinks/Week Comments Not Currently 0 (1 standard drink = 0.6 oz pur e alcohol) Comments No Sex and Gender Information Value Date Recorded Sex Assigned at Not on file Legal Sex Female 1:10 PM SUPERVISOR MOLD YARD Gender Identity Not on file Sexual Orientation Not on file Last Filed Vital Signs Vital Sign Reading Time Taken Comments Blood Pressure 115/66 05/16/2020 4:30 PM SUPERVISOR MOLD YARD Pulse 61 05/16/2020 4:30 PM SUPERVISOR MOLD YARD Temperature 36.2 C (97.2 F) 05/16/2020 6:51 AM SUPERVISOR MOLD YARD Respiratory Rate 21 05/16/2020 4:30 PM SUPERVISOR MOLD YARD Oxygen Saturation 96% 05/16/2020 3:00 PM SUPERVISOR MOLD YARD Inhaled Oxygen Concentration - - Weight 116.1 kg (255 lb 15.3 oz) 05/16/2020 6:51 AM SUPERVISOR MOLD YARD Height 177.8 cm (5' 10) 05/16/2020 6:51 AM SUPERVISOR MOLD YARD Body Mass Index 36.73 05/16/2020 6:51 AM SUPERVISOR MOLD YARD Plan of Treatment Health Maintenance Due Date Last Done Comments Cervical Cancer Screening Pa p Smear (Age 30 to 64) Every 3 Years 1969 Colorectal Cancer Screening Colonoscopy (10 Years) 1969 Annual Physical 1972 Hepatitis C 10/06/1987 DTaP, Tdap and Td Vaccines ( 1 - Tdap) 1988 Hepatitis B Vaccines (1 of 3 - 19+ 3-dose series) 1988 Cervical Cancer Screening Pa p with HPV Testing (Age 30 to 64) Every 5 Years 10/06/1999 Cervical Cancer Screening with HPV 10/06/1999 Mammogram Screening 2009 Pneumococcal Vaccine: 50+ Ye ars (1 of 1 - PCV) 10/06/2019 Zoster Vaccines (1 of 2) 10/06/2019 COVID-19 Vaccine ( - 2023-2 5 season) 2023 Meningococcal B Vaccine Aged Out No l onger eligible based on patient's age to complete this topic Meningococcal Vaccine Aged Out No francisco annabel eligible based on patient's age to complete this topic RSV Immunizations Under 20 Months Aged Out No longer eligible based on patient's age to complete this topic Insurance [facility] Advance Directives * Full Code (Latest Code Status on File) Date Activated Date Inactivated Comments 05/16/2020 1:26 PM 05/16/2020 7:37 PM Care Teams Photovoltaic Panel Installer Relationship Specialty Start Date End Date Jimbo Means MD [address] [place] [address] PCP - General FAMILY PRACTICE 05/16/20 Braulio Nick MD [address] [address] Vascular/Cardiac Care Unit Nurse VASCULAR SURGERY 05/20/20
--- OUTSIDE RECORDS SUMMARY | 2024-10-01 01:09 | XMS_ITS | Clinical Summary ---
Author Organization [facility] Address [address] [place] [address] Care Team Providers Care Orchestra Conductor Name Role Phone Jimbo Means MD Primary Care Provider Allergies No known active allergies Medications naproxen (NAPROSYN) 500 mg tablet TK 1 T PO BID 6 03/26/2017 Active levothyroxine 75 mcg tablet TK 1 T PO QD 3 03/18/2017 Active leflunomide (ARAVA) 20 mg Tablet TK 1 T PO QD 2 03/21/2017 Active predniSONE (DELTASONE) 1 mg tablet Take 24 mg by mouth daily 12 mg in am and 12 mg in pm. 3 03/26/2017 Active predniSONE (DELTASONE) 10 mg tablet TK 2 TS PO QD 2 03/21/2017 Active folic acid (FOLVITE) 1 mg tablet Take 1 mg by mouth daily. Active multivitamin (DAILY-JEFF) tablet Take 1 Tablet by mouth daily. Active tofacitinib (XELJANZ XR) 11 mg Tablet Sustained Release 24HR Take by mouth daily. Active cholecalciferol (DELTA-D, VITAMIN D3) 400 unit Tablet Take 400 Units by mouth daily. Active Cyanocobalamin (VITAMIN B-12) 1,000 mcg Tablet, Sublingual Place 1,000 mcg under tongue daily. Active Active Problems Problem Noted Date Diagnosed Date Leukemoid reaction 03/30/2017 Morbid obesity with body mass index of 40.0-49.9 03/30/2017 Tobacco use 03/30/2017 Family History Medical History Relation Name Comments Diabetes Father Heart Disease Father Cancer Mother Diabetes Mother Relation Name Status Comments Brother Alive Father Mother Alive Sister Alive Social History Tobacco Use Types Packs/Day Years Used Date Smoking Tobacco: Every Day Cigarettes 1 25 Smokeless Tobacco: Never Alcohol Use Standard Drinks/Week Comments Yes 1 (1 standard drink = 0.6 oz pur e alcohol) Comments No Sex and Gender Information Value Date Recorded Sex Assigned at Not on file Legal 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 Gender Identity Not on file Sexual Orientation Not on file Last Filed Vital Signs Vital Sign Reading Time Taken Comments Blood Pressure 138/77 04/20/2017 3:08 PM WIRE WEAVER CLOTH Pulse 115 04/20/2017 3:08 PM WIRE WEAVER CLOTH Temperature 36.9 C (98.5 F) 04/20/2017 3:08 PM WIRE WEAVER CLOTH Respiratory Rate - - Oxygen Saturation 96% 03/30/2017 3:31 PM WIRE WEAVER CLOTH Inhaled Oxygen Concentration - - Weight 132.8 kg (292 lb 12.8 oz) 04/20/2017 3:08 PM WIRE WEAVER CLOTH Height 176.5 cm (5' 9.5) 04/20/2017 3:08 PM WIRE WEAVER CLOTH Body Mass Index 42.62 04/20/2017 3:08 PM WIRE WEAVER CLOTH Plan of Treatment Health Maintenance Due Date Last Done Comments Pre-Diabetes and Diabetes Screening 1969 DTAP/TDAP/TD VACCINES (1 - Tdap) 1988 HEPATITIS B VACCINES (1 of 3 - 19+ 3-dose series) 09/17 HPV/Cotest (21-29) 1990 CERVICAL CANCER SCREENING 10/06/1999 HPV/Cotest (30-65) 10/06/1999 PAP SMEAR 10/06/1999 BREAST CANCER SCREENING 2009 COLORECTAL SCREENING 2014 Colorectal Cancer Screening 2014 FIT-DNA Q 3 years 2014 FIT/FOBT Q 1 year 2014 Flex Sig/CT Colonography Q 5 years 2014 ZOSTER VACCINE (1 of 2) 10/06/2019 INFLUENZA VACCINE (#1) 2023 Insurance Care Teams Orchestra Conductor Relationship Specialty Start Date End Date Jimbo Means MD [address] [facility] [place] [place] [address] PCP - General Family Practice 03/29/17
--- OUTSIDE RECORDS SUMMARY | 2024-10-01 01:09 | XMS_ITS | Encounter Summary ---
Author Organization [facility] Address [address] [place] [address] Care Team Providers Care Branch Officer Name Role Phone Jimbo Means MD Primary Care Provider Encounter Details Date Type Department Care Team (Late st Contact Info) Description 07/13/2001 [facility] 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
--- OUTSIDE RECORDS SUMMARY | 2024-10-01 01:09 | XMS_ITS | Encounter Summary ---
Author Organization [facility] Address [address] [place] [address] Care Team Providers Care Vial Gauger Name Role Phone Jimbo Means MD Primary Care Provider [phone] Encounter Details Date Type Department Care Team (Late st Contact Info) Description 07/20/2001 [facility] 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
[2024-10-01 07:31] VITALS: BP 111/66; PULSE 82; RESP 18; TEMP 36.1; O2SAT 98
[2024-10-01] MEDS: LACTATED RINGERS 1,000 ML 150 ML IV CONT (07:40)
--- NOTE | 2024-10-01 07:45 | WPDANESEPPF ---
Anes - Initial Pre Proc Eval Procedure: Operation Date: 10/01/24 08:30 Proposed Procedures p Screening Colonoscopy - Fletcher Jacobs DO Date/Time: 10/01/24 07:45 Surgeon: Fletcher Jacobs DO Pre Op Diagnosis: Neoplasm screening Patient Data Age: 53 Gender: F Height: 1.75 m Weight: 113.8 kg Last Vital Signs Temp 36.1 C L 10/01/24 07:31 Pulse 82 10/01/24 07:31 Resp 18 10/01/24 07:31 BP 111/66 10/01/24 07:31 Pulse Ox 98 10/01/24 07:31 O2 Del Method Room Air 10/01/24 07:31 Allergies Allergy/AdvReac Type Severity Reaction Status Date / Time hydroxychloroquine AdvReac Unknown Headache Verified 10/01/24 07:21 Home Medications ?Medication ?Instructions ?Recorded ?Confirmed ?Type naproxen 250 mg tablet 500 mg PO Q12H PRN pain 09/19/24 09/19/24 History Patient hx anesthesia problems: none Family hx anesthesia problems: none Results Review: All pre-operative results and documents have been reviewed as part of the pre-operative evaluation. [facility] Past Medical History Medical History Smoking Hypothyroidism (Unknown) Rheumatoid arthritis with positive rheumatoid factor (Unknown) Surgical History Surgical History No pertinent past surgical history Family History Family History Father Family history of obesity Patient's father is in good health Family history of diabetes mellitus in first degree relative Family history of coronary artery disease Mother Family history of obesity Patient's mother is in good health Family history of diabetes mellitus in first degree relative Family history of rheumatoid arthritis Sibling Family history of obesity Patient's sister is in good health Patient's brother is in good health Grandparent Carcinoma of colon Family history of malignant neoplasm of breast Social History Social History Social History: The patient is she works for [employer]. She smokes a pack a cigarettes a day. She had 2 daughters. She does not have a durable power title attorney for healthcare. She is a full code. She does not drink or use illicit drugs. Smoking packs per day: 0.5 Smoking cigarettes per day: 10.0 Years smoked: 35 Smoking pack-years: 17.50 Smoking status: Current every day smoker Tobacco type: cigarettes Second hand tobacco smoke exposure: No Alcohol intake: never Substance use: never Substance use type: does not use Living arrangements: with family Occupation/Education: occupation Gender identity (if verbalized by the patient): Female Sexual Orientation (if Verbalized by the Patient): Straight or Heterosexual Spiritual care concerns: No Anes - Eval Final PreProcedure Day of Procedure 10/01/24 07:45 Patient weight: obese Heart: regular rate and rhythm Lungs: decreased breath sounds Airway: Mallampati scale class III Neurological: alert and oriented Last oral intake: >/= 8 hours ASA classification: III Emergent: no Anesthetic plan: proceed Anesthesia type and monitoring: general GIVS and standard monitoring Results Review: All pre-operative results and documents have been reviewed as part of the pre-operative evaluation. Informed Consent: The patient's anesthetic plan and its attendant risks and benefits were discussed with the patient/family/POA. Questions were solicited and answers provided to the satisfaction of the patient/family/POA.
[2024-10-01 07:55] LABS: BEDSIDEPREGUCG Negative (Negative)
--- NOTE | 2024-10-01 08:20 | PM.IMHP ---
H&P: HPI History of Present Illness Date/Time: 10/01/24 08:20 Chief Complaint: screening for colorectal cancer Narrative: this is a 53-year-old woman who presents for colonoscopy. She does not recall when her last colonoscopy was. She denies any hematochezia melena. She has a family history of colon cancer in a grandparent but no first-degree relatives. Review of Systems Review of Systems: All systems reviewed & are unremarkable except as noted in HPI and below Constitutional: Constitutional: Denies chills, Denies fever(s), Denies headache(s) and Denies weight loss Eyes: Eyes: Denies change in vision ENT: Denies dizziness, Denies headache(s), Denies neck mass and Denies throat swelling Cardiovascular: Cardiovascular: Denies chest pain, Denies lightheadedness and Denies dyspnea Respiratory: Respiratory: Denies cough, Denies dyspnea and Denies wheezing Gastrointestinal: Gastrointestinal: Denies abdominal pain, Denies change in bowel habits, Denies nausea and Denies vomiting Genitourinary: Genitourinary: Denies hematuria and Denies dysuria Musculoskeletal: Musculoskeletal: Reports as per HPI Integumentary/Breasts: Skin/Breast: Reports as per HPI Neurologic: Denies dizziness and Denies headache(s) Allergic/Immunologic: Allergic/Immunologic: Denies throat swelling and Denies wheezing PMFSH Past Medical History Medical History Smoking Hypothyroidism (Unknown) Rheumatoid arthritis with positive rheumatoid factor (Unknown) Surgical History Surgical History No pertinent past surgical history Family History Family History Father Family history of obesity Patient's father is in good health Family history of diabetes mellitus in first degree relative Family history of coronary artery disease Mother Family history of obesity Patient's mother is in good health Family history of diabetes mellitus in first degree relative Family history of rheumatoid arthritis Sibling Family history of obesity Patient's sister is in good health Patient's brother is in good health Grandparent Carcinoma of colon Family history of malignant neoplasm of breast Social History Social History Social History: The patient is she works for [employer]. She smokes a pack a cigarettes a day. She had 2 daughters. She does not have a durable power personal injury attorney for healthcare. She is a full code. She does not drink or use illicit drugs. Smoking packs per day: 0.5 Smoking cigarettes per day: 10.0 Years smoked: 35 Smoking pack-years: 17.50 Smoking status: Current every day smoker Tobacco type: cigarettes Second hand tobacco smoke exposure: No Alcohol intake: never Substance use: never Substance use type: does not use Living arrangements: with family Occupation/Education: occupation Gender identity (if verbalized by the patient): Female Sexual Orientation (if Verbalized by the Patient): Straight or Heterosexual Spiritual care concerns: No Meds Home Medications and Allergies Home Medications ?Medication ?Instructions ?Recorded ?Confirmed ?Type naproxen 250 mg tablet 500 mg PO Q12H PRN pain 09/19/24 09/19/24 History Allergies Allergy/AdvReac Type Severity Reaction Status Date / Time hydroxychloroquine AdvReac Unknown Headache Verified 10/01/24 07:21 Vital Signs Vital Signs - 24 hr 10/01/24 07:31 Temperature 97 F L Pulse Rate 82 Respiratory Rate 18 Blood Pressure 111/66 Pulse Oximetry 98 Oxygen Delivery Room Air Exam Const: General: no acute distress and alert Orientation/consciousness: patient oriented x3 HENMT: Head: normocephalic and atraumatic Ears: hearing grossly normal bilaterally Face/Nose/Sinus: Normal nares present Mouth: Yes Normal oral and palatal mucosa present Eyes: Periorbital: periorbital findings normal Sclera: sclerae normal EOM: EOMs intact bilaterally Neck: Neck: normal visual inspection, no lymphadenopathy and trachea midline Chest: Chest palpation & inspection: normal inspection of the chest Resp: Effort & Inspection: normal respiratory effort Auscultation: clear to auscultation bilaterally Cardio: Jugular venous distension: no JVD Rate: regular rate Rhythm: regular rhythm Heart sounds: S1 normal heart sound present and S2 normal heart sound present Peripheral pulses: Peripheral pulses 2+ throughout GI: Inspection: normal to inspection GI Palp: Yes Soft to palpation, No Tenderness to palpation present (GI), No Guarding due to palpation present (GI) and No Rebound tenderness present Percussion: Yes normal to percussion Auscultation: normal bowel sounds : General: Yes no CVA tenderness Back/Spine/Pelvis: Back: no CVA tenderness Neuro: General: patient oriented x3, no focal motor deficits and CN's II-XI intact bilaterally Cognition (Neuro): normal cognition Speech: normal speech Motor exam (neuro): 5/5 motor strength present throughout Extrem: General: capillary refill normal and no clubbing, cyanosis or edema Assessment and Plan Assessment and plan (1) Screening for colorectal cancer: Code(s): Z12.11 - Encounter for screening for malignant neoplasm of colon; Z12.12 - Encounter for screening for malignant neoplasm of rectum Status: Acute Assessment and Plan: I have recommended colonoscopy. I have discussed the procedure, risks, benefits, and alternatives. Questions were answered. Patient is agreeable to proceed.
[2024-10-01 08:53] VITALS: BP 104/58; PULSE 66; RESP 22; O2SAT 95
--- NOTE | 2024-10-01 08:53 | S_PTH ---
PATIENT: Shira Gomez LOC: ANA #:[id number] AGE/SX: 53/F ROOM: RE10/01/[address]: Fletcher Jacobs DO : 1970 BED: DIS: 10/01/2024 SPEC #: [id number] RECD: 10/01/24 10:51 STATUS: MICHEL REQ #: [id number] GRAYSON: 10/01/24 08:[address]: Fletcher Jacobs DEPT: [facility] Surgical RECD BY: Kaila Ferreira ENTERED: 10/01/24 10:52 SP TYPE: Surgical OTHR DR: Jimbo Means MD Tissues: A - Colon Polypectomy B - Colon Polypectomy Procedures: Hematoxylin and Eosin Stain Gross and Microscopic Level 4
[2024-10-01 09:03] VITALS: BP 114/53; PULSE 66; RESP 20; O2SAT 98
[2024-10-01 09:13] VITALS: BP 117/70; PULSE 63; RESP 20; O2SAT 98
== END 2024-10-01 09:27 | disposition home or self-care (01) ==
PROVIDERS: Anesthesiology; PCP Family Medicine; Visit Provider Surgery
PROC: 0DJD8ZZ Inspection of Lower Intestinal Tract, Via Natural or Artificial Opening Endoscopic (ICD-10-PCS; CPT 45378; principal; 2024-10-01 08:30)
DX: Z12.11 Encounter for screening for malignant neoplasm of colon (principal); D12.3 Benign neoplasm of transverse colon; D12.4 Benign neoplasm of descending colon; K57.30 Diverticulosis of large intestine without perforation or abscess without bleeding; E03.9 Hypothyroidism, unspecified; M05.9 Rheumatoid arthritis with rheumatoid factor, unspecified; F17.210 Nicotine dependence, cigarettes, uncomplicated; E66.9 Obesity, unspecified; Z68.37 Body mass index [BMI] 37.0-37.9, adult; Z79.1 Long term (current) use of non-steroidal anti-inflammatories (NSAID); Z80.0 Family history of malignant neoplasm of digestive organs; Z80.3 Family history of malignant neoplasm of breast; Z82.49 Family history of ischemic heart disease and other diseases of the circulatory system
CPT/HCPCS: 45380; 45385; 88305; J2003; J2704; J7120

== ENCOUNTER 2024-10-03 08:28 | Outpatient (CLI) | payer OTHER, SELFPAY ==
--- NOTE | ~2024-10-03 | XR_ITS ---
Left Hand Technique: PA and lateral views were obtained. Clinical History: Rheumatoid arthritis Findings: No acute fracture or dislocation is seen. Osseous alignment is anatomic. Joint spaces are p reserved. Soft tissues are unremarkable. Impression: Unremarkable left hand. Reviewed, dictated and finalized at location M. Impression: Unremarkable left hand.
--- NOTE | ~2024-10-03 | XR_ITS ---
Right Hand Technique: PA and lateral views were obtained. Clinical History: Rheumatoid arthritis Findings: No acute fracture or dislocation is seen. Osseous alignment is anatomic. Joint spaces are p reserved. Soft tissues are unremarkable. Impression: Unremarkable right hand. Reviewed, dictated and finalized at location M. Impression: Unremarkable right hand.
--- NOTE | ~2024-10-03 | XR_ITS ---
Left foot Technique: AP, oblique, and lateral views were obtained. Clinical History: Rheumatoid arthritis Findings: No acute fracture or dislocation is seen. Osseous alignment is anatomic. Joint spaces are p reserved without erosive or degenerative change. Soft tissues are unremarkable. Impression: Small plantar calcaneal spur, otherwise unremarkable exam. Reviewed, dictated and finalized at location . Impression: Small plantar calcaneal spur, otherwise unremarkable exam.
--- NOTE | ~2024-10-03 | XR_ITS ---
Right foot Technique: AP, oblique, and lateral views were obtained. Clinical History: Rheumatoid arthritis Findings: No acute fracture or dislocation is seen. Osseous alignment is anatomic. Joint spaces are p reserved without erosive or degenerative change. Soft tissues are unremarkable. Impression: Plantar calcaneal spur, otherwise unremarkable exam. Reviewed, dictated and finalized at [facility]. Impression: Plantar calcaneal spur, otherwise unremarkable exam.
== END 2024-10-03 08:29 | disposition home or self-care (01) ==
PROVIDERS: PCP Family Medicine; Visit Provider Physician Assistant
DX: M77.32 Calcaneal spur, left foot (principal); M77.31 Calcaneal spur, right foot; M05.79 Rheumatoid arthritis with rheumatoid factor of multiple sites without organ or systems involvement
CPT/HCPCS: 73120; 73630

== ENCOUNTER 2024-10-08 12:27 | Outpatient (CLI) | payer OTHER, SELFPAY ==
--- NOTE | ~2024-10-08 | MM_ITS ---
EXAMINATION: MM screening francis BI w benny HISTORY: Screening mammogram TECHNIQUE: Craniocaudal and mediolateral oblique 3-D tomosynthesis images were obtained and synthetic 2-D images were generated. CAD analysis was submitted and interpreted. COMPARISON: 10/25/2017 BREAST PARENCHYMAL COMPOSITION:Not Dense. The breasts are almost entirely fatty FINDINGS: No suspicious mass, calcification, or architectural distortion are identified in either nola ast to suggest malignancy. There has been no suspicious interval change. IMPRESSION: No mammographic evidence of malignancy. Recommend routine screening mammography in one year. BI-RADS Category 1: Negative Reviewed, dictated and finalized at location .
== END 2024-10-08 12:28 | disposition home or self-care (01) ==
LOC: CHSIMG 12:27
PROVIDERS: PCP Family Medicine; Visit Provider Family Medicine
DX: Z12.31 Encounter for screening mammogram for malignant neoplasm of breast (principal)
CPT/HCPCS: 77063; 77067

== ENCOUNTER 2025-03-14 13:18 | Emergency (ER) | payer OTHER, SELFPAY ==
[2025-03-14 13:26] VITALS: BP 122/72; PULSE 85; RESP 18; TEMP 36.5; O2SAT 99
[2025-03-14] MEDS: DOXYCYCLINE HYCLATE 100 MG TABLET PO (14:17)
[2025-03-14 14:34] VITALS: BP 137/84; PULSE 72; RESP 18; O2SAT 100
--- NOTE | 2025-03-14 14:35 | ED.WOUNDLAC ---
HPI - Wound/Laceration General Chief Complaint: Wound/Laceration Stated Complaint: L foot wound Time Seen by Provider: 03/14/25 13:24 History of Present Illness HPI narrative: Patient presents with black toes on her left foot, that started using this morning, she had a recent surgery to revascularize her low left lower extremity that went well, at the time she was also being treated for cellulitis and had been told there was a good chance that her toes would heal. The redness has gone away and now the toes are black. No systemic symptoms Related Data Home Medications ?Medication ?Instructions ?Recorded ?Confirmed ?Last Taken ?Type naproxen 250 mg tablet 500 mg PO Q12H PRN pain 09/19/24 03/07/25 Unknown History aspirin 81 mg tablet 81 mg PO DAILY 03/07/25 03/07/25 Unknown History clopidogrel 75 mg tablet (Plavix) 75 mg PO DAILY 03/07/25 03/07/25 Unknown History gabapentin 100 mg capsule 100 mg PO TID 03/07/25 03/07/25 Unknown History levothyroxine 88 mcg capsule 88 mcg PO DAILY 03/07/25 03/07/25 Unknown History varenicline tartrate 0.5 mg tablet 0.5 mg PO DIRECTED 03/07/25 03/07/25 Unknown History (Chantix) Allergies Allergy/AdvReac Type Severity Reaction Status Date / Time hydroxychloroquine AdvReac Unknown Headache Verified 03/07/25 15:53 Review of Systems Review of Systems: All systems reviewed & are unremarkable except as noted in HPI and below PMFSH Past Medical History Medical History Smoking Hypothyroidism (Unknown) Rheumatoid arthritis with positive rheumatoid factor (Unknown) Surgical History Surgical History No pertinent past surgical history Family History Family History Father Family history of obesity Patient's father is in good health Family history of diabetes mellitus in first degree relative Family history of coronary artery disease Mother Family history of obesity Patient's mother is in good health Family history of diabetes mellitus in first degree relative Family history of rheumatoid arthritis Sibling Family history of obesity Patient's sister is in good health Patient's brother is in good health Grandparent Carcinoma of colon Family history of malignant neoplasm of breast Social History Social History Social History: The patient is she works for [employer]. She smokes a pack a cigarettes a day. She had 2 daughters. 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 She is a full code. She does not drink or use illicit drugs. Smoking packs per day: 0.5 Smoking cigarettes per day: 10.0 Years smoked: 35 Smoking pack-years: 17.50 Smoking status: Current every day smoker Tobacco type: cigarettes Second hand tobacco smoke exposure: No Alcohol intake: never Substance use: never Substance use type: does not use Living arrangements: with family Occupation/Education: occupation Gender identity (if verbalized by the patient): Female Sexual Orientation (if Verbalized by the Patient): Straight or Heterosexual Spiritual care concerns: No Exam Narrative: EXAMINATION OF ORGAN SYSTEMS/BODY AREAS: Constitutional: Vital signs per nursing GENERAL:[No acute distress, non-toxic appearing.] HEAD: Normal with no signs of head trauma. EYES: EOMI, conjunctiva normal ENT: Hearing grossly intact LUNGS: Nonlabored breathing. HEART: [Regular rate and rhythm], warm perfused left foot, strong left DP pulse ABD: [Soft], [nontender to palpation] EXT: Normal range of motion; left 3rd toe is black and cold, a tiny amount of oozing, distal part of 2nd toe also black SKIN: As above NEURO: [Alert and oriented x 3. No gross focal sensory or strength deficits.] PSYCH: Normal affect Course Vital Signs Vital signs: Vital Signs Temperature 97.7 F 03/14/25 13:26 Pulse Rate 85 03/14/25 13:26 Respiratory Rate 18 03/14/25 13:26 Blood Pressure 122/72 03/14/25 13:26 Pulse Oximetry 99 03/14/25 13:26 Oxygen Delivery Room Air 03/14/25 13:26 Temperature 97.7 F 03/14/25 13:26 Pulse Rate 85 03/14/25 13:26 Respiratory Rate 18 03/14/25 13:26 Blood Pressure 122/72 03/14/25 13:26 Pulse Oximetry 99 03/14/25 13:26 Oxygen Delivery Room Air 03/14/25 13:26 MDM - Wound/Laceration MDM Narrative Medical decision making narrative: Patient presents with left to, had recent revascularization, at the time had also been treated for cellulitis once the redness wore off, she noticed that the toes are black, she has been completing a course of Keflex, noticed a little bit of oozing this morning. On exam she has strong DP pulse, foot is warm, on exam her 2nd and 3rd toes on the left appear to have dry gangrene, without any surrounding redness or cellulitis. I spoke with her vascular surgeon Dr. Tinoco, with patient's permission, shared a picture of the toes, he does agree did appears to be dry gangrene, recommend starting antibiotics and that he will see her in the clinic this week. Discussed with the patient was agreeable to plan. Strict return precautions discussed. Discharge Plan Discharge Clinical Impression: Dry gangrene Patient Disposition: Home Condition: Stable Instructions: Gangrene (DC) Additional Instructions: Please call your vascular surgeon's office tomorrow to get an appointment in a week. Start the antibiotics and if you develop any fevers or chills, if you develop any new redness or anything else concerning, please come back to the emergency room. Patient Language: Malagasy Prescriptions: New doxycycline hyclate 100 mg capsule 100 mg PO Q12H 10 Days Qty: 20 0RF No Action clopidogrel [Plavix] 75 mg tablet 75 mg PO DAILY aspirin 81 mg tablet 81 mg PO DAILY gabapentin 100 mg capsule 100 mg PO TID varenicline tartrate [Chantix] 0.5 mg tablet 0.5 mg PO DIRECTED Rx Instructions: take 1 tablet by mouth daily on days 1-3; then 1 tablet twice daily (morning and evening) on days 4-7 levothyroxine 88 mcg capsule 88 mcg PO DAILY cephalexin 500 mg capsule 500 mg PO QID 7 Days Qty: 28 0RF naproxen 250 mg tablet 500 mg PO Q12H PRN (Reason: pain) Follow-up/Referrals: Jimbo Means MD [Primary Care Provider, Family Practice]
== END 2025-03-14 14:07 | disposition home or self-care (01) ==
PROVIDERS: Emergency Provider Emergency Medicine; PCP Family Medicine
DX: I96 Gangrene, not elsewhere classified (principal); E03.9 Hypothyroidism, unspecified; M05.9 Rheumatoid arthritis with rheumatoid factor, unspecified; F17.210 Nicotine dependence, cigarettes, uncomplicated; Z95.820 Peripheral vascular angioplasty status with implants and grafts; Z79.82 Long term (current) use of aspirin; Z79.02 Long term (current) use of antithrombotics/antiplatelets; Z79.899 Other long term (current) drug therapy
CPT/HCPCS: 99283; A9270